=== PATIENT | female | born 1935 | race Hispanic/Latino ===

== ENCOUNTER → 2021-08-06 | Outpatient (CLI) | payer MEDICARE | END | disposition home or self-care (01) | LOC: RAH 08:33 | PROVIDERS: ATTEND Internal Medicine | DX: N63.22 Unspecified lump in the left breast, upper inner quadrant (principal) | CPT/HCPCS: 77066 ==

== ENCOUNTER → 2021-08-16 | Outpatient (CLI) | payer MEDICARE ==
[~2021-08-16] MED LIST: LIDOCAINE HCL 1% MDV 50ML VIAL ONE
[2021-08-16 10:17] LABS: INR 0.98 (0.85-1.15); PROTHROMBIN TIME 10.7 SEC (9.6-11.6)
[2021-08-16 10:18] LABS: PARTIAL THROMBOPLASTIN TIME 29.2 SEC (26.3-35.5)
== END | disposition home or self-care (01) ==
LOC: RAH 09:13
PROVIDERS: ATTEND Internal Medicine
DX: C50.211 Malignant neoplasm of upper-inner quadrant of right female breast (principal); N63.22 Unspecified lump in the left breast, upper inner quadrant; Z79.01 Long term (current) use of anticoagulants; Z79.899 Other long term (current) drug therapy
CPT/HCPCS: 19083; 36415; 77065; 85610; 85730; A4215 ×3; J3490